=== PATIENT | male | born 1965 | race Caucasian/White ===

== ENCOUNTER → 2017-08-04 | Outpatient (CLI) | payer BC ==
--- NOTE | 2017-08-04 09:31 | US ---
EXAMINATION TYPE: US abdomen limited DATE OF EXAM: 08/04/2017 COMPARISON: NONE CLINICAL HISTORY: 51-year-old male R10.11 RUQ pain. Epigastric pain. TECHNIQUE: Multiple sonographic images of the right upper quadrant are obtained. FINDINGS: Liver Length: 15.2 cm Gallbladder Wall: 0.3 cm CBD: 0.3 cm Right Kidney: 11.1 x 4.5 x 5.4 cm Pancreas: Obscured by bowel gas Liver: Homogeneous echotexture without focal lesion. Gallbladder: No evidence of stones. Gallbladder wall thickness at the upper limits of normal. No abn ormal distention or pericholecystic fluid. Evidence for sonographic Lambert's sign: no CBD: wnl Right Kidney: no evidence of hydronephrosis. IMPRESSION: Gallbladder wall thickness is at the upper limits of normal. No evidence for cholelithiasis or ancill florence findings of acute cholecystitis.
--- NOTE | 2017-08-04 11:36 | NM ---
EXAMINATION TYPE: NM hepatobiliary w EF DATE OF EXAM: 08/04/2017 COMPARISON: Ultrasound 08/04/2017 HISTORY: 51 year-old male right upper quadrant pain TECHNIQUE: After the intravenous administration of 5.2 mCi Tc 99m Mebrofenin hepatobiliary scintigrap hy is performed. Immediate images post injection. FINDINGS: There is satisfactory initial accumulation of tracer by the liver. The gallbladder is visualized wit hin 6 minutes. The small bowel activity is noted within 24 minutes. At one hour 8 ounces of oral en sure plus is given to mimic CCK and gallbladder ejection fraction is calculated at 62 %, in the carmita l range. Therefore there is no scintigraphic evidence of cystic or common bile duct obstruction to s uggest an acute/chronic cholecystitis or gallbladder dyskinesia. IMPRESSION: Exam is within normal limits.
== END | disposition home or self-care (01) ==
LOC: RADUSMAIN 08:39
PROVIDERS: ATTEND Family Medicine
DX: R10.11 Right upper quadrant pain (principal)
CPT/HCPCS: 76705; 78226; A9537

== ENCOUNTER → 2018-03-13 | Outpatient (CLI) | payer BC ==
--- NOTE | 2018-03-13 10:33 | CT ---
EXAMINATION TYPE: CT brain wo/w con DATE OF EXAM: 03/13/2018 COMPARISON: NONE HISTORY: Headache CT DLP: 2267 mGycm Automated exposure control for dose reduction was used. CONTRAST: CT scan of the head is performed without and with IV Contrast, patient injected with 100 ml mL of Iso roberto 300. FINDINGS: There is no abnormal enhancing mass or midline shift identified. Area of low attenuation within the r ight thalamus may represent an intraparenchymal cyst or remote lacunar infarction. No enhancing mass. Calvarium intact. Ventricular system compatible with patient's age. Congenital cavum septum deformity noted. IMPRESSION: Congenital cavum septum deformity identified. Small arachnoid cyst not excluded. Recommend MRI.
== END | disposition home or self-care (01) ==
LOC: RADCTMAIN 08:34
PROVIDERS: ATTEND Family Medicine
DX: Q04.9 Congenital malformation of brain, unspecified (principal)
CPT/HCPCS: 70470; Q9967

== ENCOUNTER → 2018-04-05 | Outpatient (CLI) | payer BC ==
--- NOTE | 2018-04-05 13:35 | MR ---
EXAMINATION TYPE: MR brain wo con DATE OF EXAM: 04/05/2018 12:58 PM COMPARISON: CT brain dated March 13, 2018 HISTORY: Acquired deformity of nose/ Arachnoid Cyst/ Follow up from prior CT of Brain Multiplanar and multispin-echo imaging of the brain was performed . The ventricles, basal cisterns and sulci overlying the cerebral convexities are within normal limits. There is no evidence for midline shift or mass effect. Acute intracranial hemorrhage is not evident. CSF collection within the pineal cistern measuring 2.8 x 1.6 cm reflect an arachnoid cyst and less likely pineal gland cyst. The brain parenchyma reveals no abnormal increased signal. No acute edema is identified. The paranasal sinuses and mastoid air cells are well-aerated. IMPRESSION: CSF collection within the pineal cistern measuring 2.8 x 1.6 cm reflect an arachnoid cyst and less li antonio pineal gland cyst.
== END | disposition home or self-care (01) ==
LOC: RADMRIMAIN 12:17
PROVIDERS: ATTEND Family Medicine
DX: G93.0 Cerebral cysts (principal)
CPT/HCPCS: 70551

== ENCOUNTER → 2020-06-29 | Outpatient (CLI) | payer BC | END | disposition home or self-care (01) | LOC: LABWHC1 14:20 | PROVIDERS: ATTEND Emergency Medicine | DX: Z20.828 Contact with and (suspected) exposure to other viral communicable diseases (principal) | CPT/HCPCS: U0003; C9803 ==

== ENCOUNTER 2021-04-08 15:07 | Observation (INO) | payer BC ==
[2021-04-08] MEDS ORDERED: SODIUM CHLORIDE 0.9% 500 ML 500 ML IV STA (15:28)
--- NOTE | 2021-04-08 15:32 | ED ---
General Adult HPI - General Chief complaint: Arrhythmia/Palpitations Stated complaint: Cardiac issues Time Seen by Provider: 04/08/21 15:10 Source: patient, family, RN notes reviewed, old records reviewed Mode of arrival: wheelchair Limitations: no limitations - History of Present Illness Initial comments: This is a 55-year-old male who presents emergency department with past medical history significant for diet-controlled diabetes and hypertension. Patient states he sits take his lisinopril today. Patient states starting on Monday he started having palpitations that would last anywhere from 20-30 minutes every time he had them he felt lightheaded mildly short of breath and thought he might pass out. Patient states today's episode made him feel significantly short of breath and again he thought he was going to pass out. Patient states she's had tendon such events since Monday. Patient denies any chest pain. Patient denies any recent fever chills or cough. Patient denies any diaphoretic episodes. Patient is having nausea. Patient denies abdominal pain patient denies nausea vomiting diarrhea. Patient denies ever having been worked up for this in the past. Patient denies drug usage states she does smoke marijuana however. Nicki ent states over the last few days had a couple of beers been no leg drinking episode. - Related Data Home Medications Medication Instructions Recorded Confirmed Aspirin EC [Ecotrin Low Dose] 81 mg PO DAILY@122904/08/21 04/08/21 Cholecalciferol [Vitamin D3 (25 25 mcg PO DAILY@9904/08/21 04/08/21 Mcg = 1000 Iu)] Cyanocobalamin (Vitamin B-12) 1,000 mcg PO DAILY@122904/08/21 04/08/21 [Vitamin B-12] Krill Oil 500 mg PO DAILY@122904/08/21 04/08/21 Loratadine 10 mg PO DAILY@122904/08/21 04/08/21 Multivitamins, Thera [Multivitamin 1 tab PO DAILY@122904/08/21 04/08/21 (formulary)] Niacin 500 mg PO DAILY@122904/08/21 04/08/21 Omeprazole 20 mg PO DAILY@122904/08/21 04/08/21 Tamsulosin HCl [Flomax] 0.4 mg PO DAILY@122904/08/21 04/08/21 Turmeric Root Extract [Turmeric] 500 mg PO DAILY@1230 04/08/21 04/08/21 Zinc 50 mg PO DAILY@1230 04/08/21 04/08/21 lisinopriL 10 mg PO BID@1230,0100 04/08/21 04/08/21 Allergies Allergy/AdvReac Type Severity Reaction Status Date / Time cephalexin [From Keflex] AdvReac Nausea & Verified 04/08/21 16:00 Vomiting & Diarrhea codeine AdvReac Nausea & Verified 04/08/21 16:00 Vomiting Review of Systems ROS Statement: Those systems with pertinent positive or pertinent negative responses have been documented in the HPI. ROS Other: All systems not noted in ROS Statement are negative. Past Medical History Past Medical History: Hyperlipidemia, Hypertension History of Any Multi-Drug Resistant Organisms: None Reported Past Surgical History: Appendectomy Past Psychological History: No Psychological Hx Reported Smoking Status: Never smoker Past Alcohol Use History: Occasional Past Drug Use History: Marijuana General Exam - General Exam Comments Initial Comments: GENERAL: Patient is well-developed and well-nourished. Patient is nontoxic and well- hydrated and is in mild distress. ENT: Neck is soft and supple. No significant lymphadenopathy is noted. Oropharynx is clear. Moist mucous membranes. Neck has full range of motion without eliciting any pain. EYES: The sclera were anicteric and conjunctiva were pink and moist. Extraocular movements were intact and pupils were equal round and reactive to light. Eyelids were unremarkable. PULMONARY: Unlabored respirations. Good breath sounds bilaterally. No audible rales rhonchi or wheezing was noted. CARDIOVASCULAR: There is a regular rate and rhythm without any murmurs gallops or rubs. ABDOMEN: Soft and nontender with normal bowel sounds. SKIN: Skin is clear with no lesions or rashes and otherwise unremarkable. NEUROLOGIC: Patient is alert and oriented x3. Cranial nerves II through XII are grossly intact. Motor and sensory are also intact. Normal speech, volume and content. Symmetrical smile. MUSCULOSKELETAL: Normal extremities with adequate strength and full range of motion. LYMPHATICS: No significant lymphadenopathy is noted PSYCHIATRIC: Normal psychiatric evaluation. 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 Spoke with Dr. Torres she agreed to admit the patient admitted the patient wrote admitting orders. Patient did not have any episodes while on a monitor in the emergency [facility] t. - Lab Data Result diagrams: 04/08/21 15:28 04/08/21 15:28 Lab Results 04/08/21 04/08/21 04/08/21 Range/Units 15:28 15:28 15:28 WBC 6.6 (3.8-10.6) k/uL RBC 4.82 (4.30-5.90) m/uL Hgb 15.3 (13.0-17.5) gm/dL Hct 43.8 (39.0-53.0) % MCV 90.8 (80.0-100.0) fL MCH 31.7 (25.0-35.0) pg MCHC 34.9 (31.0-37.0) g/dL RDW 12.3 (11.5-15.5) % Plt Count 318 (150-450) k/uL MPV 7.1 Neutrophils % 53 % Lymphocytes % 37 % Monocytes % 6 % Eosinophils % 2 % Basophils % 1 % Neutrophils # 3.5 (1.3-7.7) k/uL Lymphocytes # 2.5 (1.0-4.8) k/uL Monocytes # 0.4 (0-1.0) k/uL Eosinophils # 0.1 (0-0.7) k/uL Basophils # 0.0 (0-0.2) k/uL PT 10.2 (9.0-12.0) sec INR 0.9 (<1.2) APTT 23.7 (22.0-30.0) sec Sodium 138 (137-145) mmol/L Potassium 4.4 (3.5-5.1) mmol/L Chloride 105 (98-107) mmol/L Carbon Dioxide 25 (22-30) mmol/L Anion Gap 8 mmol/L BUN 19 (9-20) mg/dL Creatinine 0.90 (0.66-1.25) mg/dL Est GFR (CKD-EPI)AfAm >90 (>60 ml/min/1.73 sqM) Est GFR (CKD-EPI)NonAf >90 (>60 ml/min/1.73 sqM) Glucose 81 (74-99) mg/dL Calcium 9.6 (8.4-10.2) mg/dL Magnesium 1.8 (1.6-2.3) mg/dL Total Bilirubin 0.4 (0.2-1.3) mg/dL AST 37 (17-59) U/L ALT 25 (4-49) U/L Alkaline Phosphatase 54 (38-126) U/L Troponin I (0.000-0.034) ng/mL Total Protein 6.8 (6.3-8.2) g/dL Albumin 4.3 (3.5-5.0) g/dL TSH 0.887 (0.465-4.680) mIU/L 04/08/21 Range/Units 15:28 WBC (3.8-10.6) k/uL RBC (4.30-5.90) m/uL Hgb (13.0-17.5) gm/dL Hct (39.0-53.0) % MCV (80.0-100.0) fL MCH (25.0-35.0) pg MCHC (31.0-37.0) g/dL RDW (11.5-15.5) % Plt Count (150-450) k/uL MPV Neutrophils % % Lymphocytes % % Monocytes % % Eosinophils % % Basophils % % Neutrophils # (1.3-7.7) k/uL Lymphocytes # (1.0-4.8) k/uL Monocytes # (0-1.0) k/uL Eosinophils # (0-0.7) k/uL Basophils # (0-0.2) k/uL PT (9.0-12.0) sec INR (<1.2) APTT (22.0-30.0) sec Sodium (137-145) mmol/L Potassium (3.5-5.1) mmol/L Chloride (98-107) mmol/L Carbon Dioxide (22-30) mmol/L Anion Gap mmol/L BUN (9-20) mg/dL Creatinine (0.66-1.25) mg/dL Est GFR (CKD-EPI)AfAm (>60 ml/min/1.73 sqM) Est GFR (CKD-EPI)NonAf (>60 ml/min/1.73 sqM) Glucose (74-99) mg/dL Calcium (8.4-10.2) mg/dL Magnesium (1.6-2.3) mg/dL Total Bilirubin (0.2-1.3) mg/dL AST (17-59) U/L ALT (4-49) U/L Alkaline Phosphatase (38-126) U/L Troponin I <0.012 (0.000-0.034) ng/mL Total Protein (6.3-8.2) g/dL Albumin (3.5-5.0) g/dL TSH (0.465-4.680) mIU/L Disposition Clinical Impression: Palpitations, Near syncope Disposition: ADMITTED IP TO THIS HOSP Referrals: Leonardo Thapa DO [Primary Care Provider] - 1-2 days Time of Disposition: 17:03
[2021-04-08 16:05] LABS: Basophils % (A) 1 %; Eosinophils # (A) 0.1 k/uL (0-0.7); Eosinophils % (A) 2 %; HCT 43.8 % (39.0-53.0); HGB 15.3 gm/dL (13.0-17.5); Lymphocytes # (A) 2.5 k/uL (1.0-4.8); Lymphocytes % (A) 37 %; MCH 31.7 pg (25.0-35.0); MCHC 34.9 g/dL (31.0-37.0); MCV 90.8 fL (80.0-100.0); Mean Platelet Volume 7.1; Monocytes # (A) 0.4 k/uL (0-1.0); Monocytes % (A) 6 %; Neutrophils # (A) 3.5 k/uL (1.3-7.7); Neutrophils % (A) 53 %; Platelet Count 318 k/uL (150-450); RBC 4.82 m/uL (4.30-5.90); RDW 12.3 % (11.5-15.5); WBC 6.6 k/uL (3.8-10.6)
[2021-04-08 16:12] LABS: INR 0.9 (<1.2); Partial Thromboplastin Time 23.7 sec (22.0-30.0); Prothrombin Time 10.2 sec (9.0-12.0)
--- NOTE | 2021-04-08 16:16 | XR ---
EXAMINATION TYPE: XR chest 2V DATE OF EXAM: 04/08/2021 COMPARISON: None INDICATION: Dysrhythmia TECHNIQUE: Frontal and lateral views of the chest are obtained. FINDINGS: The heart size is normal. The pulmonary vasculature is normal. The lungs are clear. IMPRESSION: 1. No acute pulmonary process.
[2021-04-08 16:19] LABS: ALT 25 U/L (4-49); AST 37 U/L (17-59); African American GFR (CKD) >90 (>60 ml/min/1.73 sqM); Albumin 4.3 g/dL (3.5-5.0); Alkaline Phosphatase 54 U/L (38-126); Anion Gap 8 mmol/L; Blood Urea Nitrogen 19 mg/dL (9-20); Calcium 9.6 mg/dL (8.4-10.2); Carbon Dioxide 25 mmol/L (22-30); Chloride 105 mmol/L (98-107); Glucose 81 mg/dL (74-99); Magnesium 1.8 mg/dL (1.6-2.3); Non-African American GFR(CKD) >90 (>60 ml/min/1.73 sqM); Potassium 4.4 mmol/L (3.5-5.1); Sodium 138 mmol/L (137-145); Total Bilirubin 0.4 mg/dL (0.2-1.3); Total Protein 6.8 g/dL (6.3-8.2)
[2021-04-08] MEDS ORDERED: NITROGLYCERIN SL TABS 0.4 MG TAB SUBLINGUAL PRN (17:05)
[2021-04-08 17:17] LABS: Amphetamine Screen,Urine Not Detected (NotDetected); Barbiturate Screen,Urine Not Detected (NotDetected); Benzodiazepines Screen,Urine Not Detected (NotDetected); Cocaine Screen,Urine Not Detected (NotDetected); Methadone Screen, Urine Not Detected (NotDetected); Opiate Screen,Urine Not Detected (NotDetected); Oxycodone Screen, Urine Not Detected (NotDetected); Phencyclidine Screen,Urine Not Detected (NotDetected); Tricyclic Antidepressant,Urine Not Detected (NotDetected); Urn Cannabinoid Scrn Detected (NotDetected)
[2021-04-08 20:32] VITALS: RESP 18
[2021-04-08] MEDS: PANTOPRAZOLE 40 MG TABLET PO SCH (23:43)
[2021-04-08] MEDS: lisinopriL 10 MG TAB PO SCH (23:44)
[2021-04-09] MEDS ORDERED: CHOLECALCIFEROL 25 MCG (1000 IU) TABLET PO SCH (01:00)
[2021-04-09 07:40] LABS: Glucose,Whole Blood 91 mg/dL (75-99)
[2021-04-09 07:57] VITALS: PULSE 56
[2021-04-09 08:03] VITALS: BP 128/75; TEMP 98.1
[2021-04-09] MEDS: PANTOPRAZOLE 40 MG TABLET PO SCH (08:16)
--- NOTE | 2021-04-09 08:40 | P.CRDCN ---
History of Present Illness Consult date: 04/09/21 History of present illness: HISTORY OF PRESENT ILLNESS: This is a 55-year-old male with a past medical history significant for hypertension, hyperlipidemia, and occasional marijuana use. 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 We have been asked to see the patient in consultation for palpitations. Patient examined at the bedside. Patient states he has been having palpitations since Monday. He states he would start feeling his heart fluttering while he was at work. He states he would sit down and relax and requiring some water and eventually it would subside on its own. However he states yesterday while at work he had palpitations that persisted for a long time. He also reports feeling dizziness and short of breath. At the ti me of my examination, the patient denies feeling palpitations. He denies dizziness. Denies shortness of breath. Denies chest pain or pressure. Patient does report that he took his pulse yesterday on a blood pressure machine that he has at home and it was reading 150. Patient reports a family history of coronary artery disease in both his mother and his father. EKG reveals sinus bradycardia with early repolarization Chest xray negative for acute process Laboratory data: WBC 6.6. Hemoglobin 15.9. Platelet count 318. Sodium 138. Potassium 4.4. BUN 19. Creatinine 0.90. Troponin negative 3. TSH 0.887. Current home cardiac medications include lisinopril 10 mg twice a day, niacin 500 mg daily, and aspirin 81 mg daily REVIEW OF SYSTEMS: At the time of my exam: CONSTITUTIONAL: Denies fever or chills. HEENT: Denies blurred vision, vision changes, or eye pain. Denies hemoptysis CARDIOVASCULAR: Denies chest pain. Denies orthopnea. Denies PND. Denies palpitations RESPIRATORY: Denies shortness of breath. GASTROINTESTINAL: Denies abdominal pain. Denies nausea or vomiting. HEMATOLOGIC: Denies bleeding disorders. GENITOURINARY: Denies any blood in urine. SKIN: Denies pruitis. Denies rash. PHYSICAL EXAM: VITAL SIGNS: Reviewed. GENERAL: Well-developed in no acute distress. HEENT: Head is normocephalic. Pupils are equal, round. Sclerae anicteric. Mucous membranes of the mouth are moist. Neck supple. No JVD or thyromegaly LUNGS: Respirations even and unlabored. Lungs essentially clear to auscultation bilaterally. HEART: Regular rate and rhythm. S1 and S2 heard. ABDOMEN: Soft. Nondistended. Nontender. EXTREMITIES: Normal range of motion. No clubbing or cyanosis. Peripheral pulses intact. No lower extremity edema NEUROLOGIC: Awake and alert. Oriented x 3. ASSESSMENT: Palpitations Dizziness Hypertension Hyperlipidemia Occasional marijuana use Family history of coronary artery disease PLAN: No arrhythmias have been noted on telemetry thus far. Continue telemetry monitoring TSH checked and within normal limits Obtain 2-D echo to assess cardiac structure and function Resume home cardiac medications Patient may be discharged home today with an event monitor and follow up on an outpatient basis Nurse practitioner note has been reviewed by physician. Signing provider agrees with the documented findings, assessment, and plan of care. Past Medical History Past Medical History: Hyperlipidemia, Hypertension History of Any Multi-Drug Resistant Organisms: None Reported Past Surgical History: Appendectomy Past Anesthesia/Blood Transfusion Reactions: No Reported Reaction Past Psychological History: No Psychological Hx Reported Smoking Status: Never smoker Past Alcohol Use History: Occasional Past Drug Use History: Marijuana Medications and Allergies Home Medications Medication Instructions Recorded Confirmed Type Aspirin EC [Ecotrin Low Dose] 81 mg PO DAILY@122904/08/21 04/08/21 History Cholecalciferol [Vitamin D3 (25 25 mcg PO DAILY@9904/08/21 04/08/21 History Mcg = 1000 Iu)] Cyanocobalamin (Vitamin B-12) 1,000 mcg PO DAILY@122904/08/21 04/08/21 History [Vitamin B-12] Krill Oil 500 mg PO DAILY@122904/08/21 04/08/21 History Loratadine 10 mg PO DAILY@122904/08/21 04/08/21 History Multivitamins, Thera [Multivitamin 1 tab PO DAILY@122904/08/21 04/08/21 History (formulary)] Niacin 500 mg PO DAILY@122904/08/21 04/08/21 History Omeprazole 20 mg PO DAILY@122904/08/21 04/08/21 History Tamsulosin HCl [Flomax] 0.4 mg PO DAILY@122904/08/21 04/08/21 History Turmeric Root Extract [Turmeric] 500 mg PO DAILY@122904/08/21 04/08/21 History Zinc 50 mg PO DAILY@1230 04/08/21 04/08/21 History lisinopriL 10 mg PO BID@1230,0100 04/08/21 04/08/21 History Allergies Allergy/AdvReac Type Severity Reaction Status Date / Time cephalexin [From Keflex] AdvReac Nausea & Verified 04/08/21 16:00 Vomiting & Diarrhea codeine AdvReac Nausea & Verified 04/08/21 16:00 Vomiting Physical Exam Vitals: Vital Signs Temp Pulse Pulse Pulse Resp BP BP 04/09/21 07:55 56 L 51 L 18 04/09/21 02:00 98.4 F 51 L 18 125/77 04/08/21 20:31 97.8 F 56 L 18 130/73 04/08/21 20:00 18 04/08/21 16:55 56 L 04/08/21 16:52 61 16 123/73 04/08/21 15:10 98.1 F 69 17 138/90 Pulse Ox 04/09/21 07:55 04/09/21 02:00 99 04/08/21 20:31 99 04/08/21 20:00 04/08/21 16:55 04/08/21 16:52 98 04/08/21 15:10 98 Intake and Output 04/08/21 04/09/21 04/09/21 22:59 06:59 14:59 Other: Voiding Method Toilet Toilet Toilet # Voids 1 2 Weight 80.286 kg Results 04/08/21 15:28 04/08/21 15:28 Cardiac Enzymes 04/08/21 04/08/21 04/08/21 Range/Units 15:28 15:28 20:57 AST 37 (17-59) U/L Troponin I <0.012 <0.012 (0.000-0.034) ng/mL 04/08/21 Range/Units 23:50 AST (17-59) U/L Troponin I <0.012 (0.000-0.034) ng/mL Coagulation 04/08/21 Range/Units 15:28 PT 10.2 (9.0-12.0) sec APTT 23.7 (22.0-30.0) sec CBC 04/08/21 Range/Units 15:28 WBC 6.6 (3.8-10.6) k/uL RBC 4.82 (4.30-5.90) m/uL Hgb 15.3 (13.0-17.5) gm/dL Hct 43.8 (39.0-53.0) % Plt Count 318 (150-450) k/uL Comprehensive Metabolic Panel 04/08/21 Range/Units 15:28 Sodium 138 (137-145) mmol/L Potassium 4.4 (3.5-5.1) mmol/L Chloride 105 (98-107) mmol/L Carbon Dioxide 25 (22-30) mmol/L BUN 19 (9-20) mg/dL Creatinine 0.90 (0.66-1.25) mg/dL Glucose 81 (74-99) mg/dL Calcium 9.6 (8.4-10.2) mg/dL AST 37 (17-59) U/L ALT 25 (4-49) U/L Alkaline Phosphatase 54 (38-126) U/L Total Protein 6.8 (6.3-8.2) g/dL Albumin 4.3 (3.5-5.0) g/dL Current Medications Generic Name Dose Route Start Last Admin Trade Name Freq PRN Reason Stop Dose Admin Aspirin 325 mg 04/09/21 09:00 Aspirin 325 Mg Tab PO DAILY [facility] Cholecalciferol 25 mcg 04/09/21 01:00 04/08/21 23:44 Cholecalciferol 25 Mcg (1000 Iu) Tablet PO 25 mcg DAILY@0100 [facility] Administration Lisinopril 10 mg 04/09/21 01:00 04/08/21 23:44 Lisinopril 10 Mg Tab PO 10 mg BID@1230,0100 [facility] Administration Multivitamins 1 each 04/09/21 12:30 Multivitamins, Thera 1 Each Tab PO DAILY@1230 [facility] Nitroglycerin 0.4 mg 04/08/21 17:05 Nitroglycerin Sl Tabs 0.4 Mg Tab SUBLINGUAL Q5M PRN Chest Pain Pantoprazole Sodium 40 mg 04/08/21 23:45 04/08/21 23:43 Pantoprazole 40 Mg Tablet PO 40 mg AC-BID DNAA Administration Tamsulosin HCl 0.4 mg 04/09/21 12:30 Tamsulosin 0.4 Mg Cap.Er.24h PO DAILY@1230 DANA Intake and Output 04/08/21 04/09/21 04/09/21 22:59 06:59 14:59 Other: Voiding Method Toilet Toilet Toilet # Voids 1 2 Weight 80.286 kg 04/08/21 15:28 04/08/21 15:28
[2021-04-09] MEDS ORDERED: ASPIRIN 325 MG TAB PO SCH (09:00)
--- NOTE | 2021-04-09 11:56 | P.HPIM ---
History of Present Illness H&P Date: 04/09/21 HISTORY AND PHYSICAL AND DISCHARGE SUMMARY: HISTORY OF PRESENT ILLNESS This is a 55-year-old male patient of Dr. Thapa with past medical history of diabetes mellitus type 2 diet-controlled, hypertension, seasonal ALLERGIES, gastroesophageal reflux disease, benign prostatic hypertrophy. Patient states that he checked his blood pressure yesterday on the machine and his heart rate was 150 as blood pressure was 112/84. He states he has episodes of palpitations are lasting for about a half hour his last episode was yesterday around 1:30 or 2 PM. He states he drinks 2 cups of coffee daily in the morning. He states he is passing gas and burping quite a bit. He had an episode on Monday of palpitations while at work and then Monday he also had episodes SOAP which seemed to be a little bit worse. On Monday he was helping his son move to a new house and he also had an episode on that day. He denies any history of obstructive sleep apnea and no cardiac history. He denies any alcohol use, no decongestant use. He denies any recent weight loss. He states he did have a stress test many years ago which apparently was normal at that time. Patient presented to the [facility] emergency center. He was found to be afebrile, heart rate in the 60s, blood pressure 138/90, pulse ox 90% on room air. EKG was sinus rhythm at 64 bpm with no acute ST changes. CBC and BMP were unremarkable. Chest x-ray shows no acute abnormality. Liver function tests were normal. TSH 0.887. Troponin negative on 3 draws. Urine drug screen was positive for marijuana. Blood sugar was 81. Patient placed on the observation unit and consult requested with cardiology. Patient has had no arrhythmias on telemetry. Echocardiogram reveals Patient has been cleared for discharge by cardiology once event monitor has been placed with plan for outpatient follow-up. Patient will be discharged home today in stable condition. REVIEW OF SYSTEMS Constitutional: No fever, no chills, no night sweats. No weight change. No weakness, fatigue or lethargy. No daytime sleepiness. EENT: No headache. No blurred vision or double vision, no loss of vision. No loss of Hearing. No nasal drainage or congestion. No epistaxis. No sore throat. Lungs: No shortness of breath, cough, no sputum production. No wheezing. Cardiovascular: No chest pain, no lower extremity edema. Reports palpitations. No paroxysmal nocturnal dyspnea. No orthopnea. Reports lightheadedness or dizziness. Reports near syncopal episodes. Abdominal: No abdominal pain. Reports nausea, no vomiting. No diarrhea. No constipation. No bloody or tarry stools.. No loss of appetite. Genitourinary: No dysuria, increased frequency, urgency. No urinary retention. Musculoskeletal: No myalgias. No muscle weakness, no gait dysfunction, no frequent falls. No back pain. No neck pain. Integumentary: No wounds, no lesions. No rash or pruritus. No unusual bruising. No change in hair or nails. Neurologic: No aphasia. No facial droop. No change in mentation. No head injury. No headache. No paralysis. No paresthesia. Psychiatric: No depression. No anxiety. No mood swings. Endocrine: No abnormal blood sugars. No weight change. No excessive sweating or thirst. No cold intolerance. SOCIAL HISTORY Patient denies tobacco use. He smokes marijuana occasionally. He states he drinks beer occasionally but had 3 beers on Monday night. No other drug use. Patient lives at home with his . FAMILY HISTORY Father from melanoma with metastatic disease to the brain with history of coronary artery disease. Mother is with history of coronary artery disease and stroke. Patient has 2 brothers one has history of hypertension, hyperlipidemia and possible coronary artery disease. One brother has history of kidney cancer. Patient has 1 sister with no major medical problems. He does not have any children. PHYSICAL EXAMINATION Gen: This is a 55-year-old male. He is resting in bed and appears to be comfortable and in no acute distress. HEENT: Head is atraumatic, normocephalic. Pupils equal, round. Sclerae is anicteric. NECK: Supple. No JVD. No lymphadenopathy. No thyromegaly. LUNGS: Clear to auscultation. No wheezes or rhonchi. No intercostal retractions. HEART: Regular rate and rhythm. No murmur. ABDOMEN: Soft. Bowel sounds are present. No masses. No tenderness. EXTREMITIES: No pedal edema. No calf tenderness. NEUROLOGICAL: Patient is awake, alert and oriented x3. Cranial nerves 2 through 12 are grossly intact. ASSESSMENT AND PLAN 1. Symptoms of palpitations, lightheadedness, shortness of breath and near syncope. Cardiology consult appreciated. Event monitor for outpatient testing. 2. Diabetes mellitus type 2, diet controlled. 3. Hypertension. Continue lisinopril 10 mg twice daily. 4. Seasonal ALLERGIES. Continue loratadine. 5. Gastroesophageal reflux disease. Continue omeprazole 20 mg daily. 6. Benign prostatic hypertrophy. Continue Flomax or 0.4 mg daily. Patient placed as an observation status. DISCHARGE PLAN Home. DISCHARGE MEDICATION LIST - NO CHANGES MADE Aspirin EC [Ecotrin Low Dose] 81 mg PO DAILY@122904/08/21 [History] Cholecalciferol [Vitamin D3 (25 Mcg = 1000 Iu)] 25 mcg PO DAILY@9904/08/21 [History] Cyanocobalamin (Vitamin B-12) [Vitamin B-12] 1,000 mcg PO DAILY@122904/08/21 [History] Krill Oil 500 mg PO DAILY@122904/08/21 [History] Loratadine 10 mg PO DAILY@122904/08/21 [History] Multivitamins, Thera [Multivitamin (formulary)] 1 tab PO DAILY@122904/08/21 [History] Niacin 500 mg PO DAILY@122904/08/21 [History] Omeprazole 20 mg PO DAILY@122904/08/21 [History] Tamsulosin HCl [Flomax] 0.4 mg PO DAILY@122904/08/21 [History] Turmeric Root Extract [Turmeric] 500 mg PO DAILY@122904/08/21 [History] Zinc 50 mg PO DAILY@122904/08/21 [History] lisinopriL 10 mg PO BID@1229,9904/08/21 [History] Impression and plan of care have been directed as dictated by the signing physician. Makayla Trotter nurse practitioner acting as scribe for signing physician. Past Medical History Past Medical History: Hyperlipidemia, Hypertension History of Any Multi-Drug Resistant Organisms: None Reported Past Surgical History: Appendectomy Past Anesthesia/Blood Transfusion Reactions: No Reported Reaction Past Psychological History: No Psychological Hx Reported Smoking Status: Never smoker Past Alcohol Use History: Occasional Past Drug Use History: Marijuana Medications and Allergies Home Medications Medication Instructions Recorded Confirmed Type Aspirin EC [Ecotrin Low Dose] 81 mg PO DAILY@1230 04/08/21 04/08/21 History Cholecalciferol [Vitamin D3 (25 25 mcg PO DAILY@0100 04/08/21 04/08/21 History Mcg = 1000 Iu)] Cyanocobalamin (Vitamin B-12) 1,000 mcg PO DAILY@1230 04/08/21 04/08/21 History [Vitamin B-12] Krill Oil 500 mg PO DAILY@1230 04/08/21 04/08/21 History Loratadine 10 mg PO DAILY@12304/08/21 04/08/21 History Multivitamins, Thera [Multivitamin 1 tab PO DAILY@0 04/08/21 04/08/21 History (formulary)] Niacin 500 mg PO DAILY@122904/08/21 04/08/21 History Omeprazole 20 mg PO DAILY@122904/08/21 04/08/21 History Tamsulosin HCl [Flomax] 0.4 mg PO DAILY@0 04/08/21 04/08/21 History Turmeric Root Extract [Turmeric] 500 mg PO DAILY@122904/08/21 04/08/21 History Zinc 50 mg PO DAILY@0 04/08/21 04/08/21 History lisinopriL 10 mg PO BID@1230,0100 04/08/21 04/08/21 History Allergies Allergy/AdvReac Type Severity Reaction Status Date / Time cephalexin [From Keflex] AdvReac Nausea & Verified 04/08/21 16:00 Vomiting & Diarrhea codeine AdvReac Nausea & Verified 04/08/21 16:00 Vomiting Physical Exam Vitals: Vital Signs Temp Pulse Pulse Pulse Resp BP BP 04/09/21 07:55 56 L 51 L 18 04/09/21 07:00 98.1 F 50 L 18 128/75 04/09/21 02:00 98.4 F 51 L 18 125/77 04/08/21 20:31 97.8 F 56 L 18 130/73 04/08/21 20:00 18 04/08/21 16:55 56 L 04/08/21 16:52 61 16 123/73 04/08/21 15:10 98.1 F 69 17 138/90 Pulse Ox 04/09/21 07:55 04/09/21 07:00 98 04/09/21 02:00 99 04/08/21 20:31 99 04/08/21 20:00 04/08/21 16:55 04/08/21 16:52 98 04/08/21 15:10 98 Intake and Output 04/08/21 04/09/21 04/09/21 22:59 06:59 14:59 Other: Voiding Method Toilet Toilet Toilet # Voids 1 2 Weight 80.286 kg Results CBC & Chem 7: 04/08/21 15:28 04/08/21 15:28 Labs: Abnormal Lab Results - Last 24 Hours (Table) 04/08/21 Range/Units 16:57 U Marijuana (THC) Screen Detected H (NotDetected) Thrombosis Risk Factor Assmnt - Choose All That Apply Any of the Below Risk Factors Present?: Yes Each Factor Represents 1 point: Age 41-60 years, Obesity (BMI >25) Other Risk Factors: No Other congenital or acquired thrombophilia - If yes, enter type in comment: No Thrombosis Risk Factor Assessment Total Risk Factor Score: 2 Thrombosis Risk Factor Assessment Level: Low Risk
--- NOTE | 2021-04-09 12:01 | ECHOF ---
Referral Reason:syncope MEASUREMENTS -------- HEIGHT: 170.2 cm WEIGHT: 80.3 kg BP: 125/77 RVIDd: 3.4 cm (< 3.3) IVSd: 0.9 cm (0.6 - 1.1) LVIDd: 4.7 cm (3.9 - 5.3) LVPWd: 1.2 cm (0.6 - 1.1) IVSs: 1.1 cm LVIDs: 2.9 cm LVPWs: 1.7 cm LAESV Index (A-L): 24.52 ml/m Ao Diam: 3.3 cm (2.0 - 3.7) AV Cusp: 2.3 cm (1.5 - 2.6) MV EXCURSION: 20.130 mm (> 18.000) MV EF SLOPE: 176 mm/s (70 - 150) EPSS: 0.9 cm MV E Saeed: 0.67 m/s MV DecT: 176 ms MV A Saeed: 0.35 m/s MV E/A Ratio: 1.92 RAP: 5.00 mmHg RVSP: 21.80 mmHg FINDINGS -------- Resting bradycardia (HR<60bpm). This was a technically adequate study. The left ventricular size is normal. Left ventricular wall thickness is normal. Overall left vent ricular systolic function is low-normal with, an EF between 50 - 55 %. The diastolic filling patter n is normal for the age of the patient 5.46. The right ventricle is mildly enlarged. Normal LA size by volume 22+/-6 ml/m2. The right atrial size is normal. Interatrial and interventricular septum intact. The aortic valve is trileaflet and appears structurally normal. There is no evidence of aortic sten osis. The maximum velocity across the aortic valve is {AV Vmax}. Mild mitral regurgitation is present. Mild tricuspid regurgitation present. There is no evidence of pulmonary hypertension. The right v entricular systolic pressure, as measured by Doppler, is 21.80mmHg. There is no pulmonic regurgitation present. The aortic root size is normal. Normal inferior vena cava with normal inspiratory collapse consistent with estimated right atrial pre ssure of 5 mmHg. There is no pericardial effusion. CONCLUSIONS -------- 1. The left ventricular size is normal. 2. Left ventricular wall thickness is normal. 3. Overall left ventricular systolic function is low-normal with, an EF between 50 - 55 %. 4. The right ventricle is mildly enlarged. 5. Mild mitral regurgitation is present. 6. Mild tricuspid regurgitation present. EVENT PLANNER: Denisse Thao RDCS
[2021-04-09] MEDS: lisinopriL 10 MG TAB PO SCH (12:20)
[2021-04-09] MEDS ORDERED: LORATADINE 10 MG TAB PO SCH (12:30)
[2021-04-09] MEDS ORDERED: MULTIVITAMINS, THERA 1 EACH TAB PO SCH (12:30)
[2021-04-09] MEDS ORDERED: NON FORMULARY DRUG (Omeprazole [Omeprazole] 20 MG Capsule.Dr) PO SCH (12:30)
[2021-04-09] MEDS ORDERED: TAMSULOSIN 0.4 MG CAP.ER.24H PO SCH (12:30)
[2021-04-09 13:29] LABS: Chol/HDL Ratio 4.76; LDL Cholesterol,Calculated 132.8 mg/dL (0.0-131.0); VLDL Calculation 55.2 mg/dL (5.00-40.00)
[2021-04-10] MEDS ORDERED: ASPIRIN 81 MG PO SCH (12:30)
== END 2021-04-09 13:05 | disposition home or self-care (01) ==
LOC: EC 15:07 → 6NMEDSUR 17:05
PROVIDERS: ADMIT Family Medicine; ATTEND Family Medicine
DX: R00.2 Palpitations (principal); R55 Syncope and collapse; I10 Essential (primary) hypertension; E78.5 Hyperlipidemia, unspecified; R42 Dizziness and giddiness; R06.02 Shortness of breath; R00.1 Bradycardia, unspecified; R11.0 Nausea; E11.9 Type 2 diabetes mellitus without complications; J30.2 Other seasonal allergic rhinitis; K21.9 Gastro-esophageal reflux disease without esophagitis; N40.0 Benign prostatic hyperplasia without lower urinary tract symptoms; E66.9 Obesity, unspecified; Z68.27 Body mass index [BMI] 27.0-27.9, adult; Z79.82 Long term (current) use of aspirin; Z79.899 Other long term (current) drug therapy; Z88.1 Allergy status to other antibiotic agents; Z88.5 Allergy status to narcotic agent; Z90.49 Acquired absence of other specified parts of digestive tract; Z82.49 Family history of ischemic heart disease and other diseases of the circulatory system; Z80.8 Family history of malignant neoplasm of other organs or systems; Z82.3 Family history of stroke; Z80.51 Family history of malignant neoplasm of kidney
CPT/HCPCS: 96361 ×3; 93005 ×2; 96360; 99285; 36415; 93306; 93270; 80061; 80053; 83735; 84443; 84484; 85025; 85610; 85730; 80306; 71046; G0378 ×2

== ENCOUNTER → 2021-04-21 | Outpatient (CLI) | payer BC ==
--- NOTE | 2021-04-21 14:34 | XR ---
EXAMINATION TYPE: XR forearm LT DATE OF EXAM: 04/21/2021 COMPARISON: None HISTORY: Pain TECHNIQUE: 2 view left forearm FINDINGS: No acute fracture or dislocation is evident. Joint spaces are preserved. Soft tissues are n ormal. IMPRESSION: 1. Normal 2 view left arm
--- NOTE | 2021-04-21 14:51 | XR ---
EXAMINATION TYPE: XR wrist complete LT DATE OF EXAM: 04/21/2021 COMPARISON: None HISTORY: Pain TECHNIQUE: 4 view left wrist FINDINGS: No acute fractures or dislocations are evident. Joint spaces are preserved. Soft tissues ar e normal. There is pain at the anatomic snuffbox, nuclear medicine bone scan would be recommended for additiona l evaluation. Follow-up studies can be performed 7-10 days from acute trauma for continued pain. IMPRESSION: 1. Normal 4 view left wrist
--- NOTE | 2021-04-21 15:09 | XR ---
EXAMINATION TYPE: XR hand complete LT DATE OF EXAM: 04/21/2021 COMPARISON: None HISTORY: Jammed finger, pain TECHNIQUE: 3 view left hand FINDINGS: No acute fractures are evident. Joint spaces are preserved. Soft tissues are normal. Follow up exams can be performed 7-10 days from acute trauma for continued pain. IMPRESSION: 1. Normal three-view left hand
== END | disposition home or self-care (01) ==
LOC: RADXRMAIN 13:56
PROVIDERS: ATTEND Family Medicine
DX: M79.632 Pain in left forearm (principal); M79.642 Pain in left hand; M25.532 Pain in left wrist

== ENCOUNTER 2022-09-29 14:21 | Observation (INO) | payer BC ==
[2022-09-29 15:09] LABS: Basophils % (A) 1 %; Eosinophils # (A) 0.1 k/uL (0-0.7); Eosinophils % (A) 1 %; HCT 45.6 % (39.0-53.0); HGB 15.4 gm/dL (13.0-17.5); Lymphocytes # (A) 2.3 k/uL (1.0-4.8); Lymphocytes % (A) 30 %; MCH 30.5 pg (25.0-35.0); MCHC 33.8 g/dL (31.0-37.0); MCV 90.2 fL (80.0-100.0); Mean Platelet Volume 6.6; Monocytes # (A) 0.3 k/uL (0-1.0); Monocytes % (A) 4 %; Neutrophils # (A) 4.9 k/uL (1.3-7.7); Neutrophils % (A) 64 %; Platelet Count 264 k/uL (150-450); RBC 5.05 m/uL (4.30-5.90); RDW 12.4 % (11.5-15.5); WBC 7.7 k/uL (3.8-10.6)
--- NOTE | 2022-09-29 15:32 | XR ---
EXAMINATION TYPE: XR chest 2V DATE OF EXAM: 09/29/2022 COMPARISON: 04/08/2021 INDICATION: Chest pain TECHNIQUE: Frontal and lateral views of the chest are obtained. FINDINGS: The heart size is normal. The pulmonary vasculature is normal. The lungs are clear. IMPRESSION: 1. No acute pulmonary process.
[2022-09-29 15:33] LABS: ALT 31 U/L (4-49); AST 34 U/L (17-59); African American GFR (CKD) >90 (>60 ml/min/1.73 sqM); Albumin 4.3 g/dL (3.5-5.0); Alkaline Phosphatase 53 U/L (38-126); Anion Gap 5 mmol/L; Blood Urea Nitrogen 14 mg/dL (9-20); Carbon Dioxide 33 mmol/L (22-30); Chloride 102 mmol/L (98-107); Glucose 103 mg/dL (74-99); Magnesium 1.7 mg/dL (1.6-2.3); Non-African American GFR(CKD) 89 (>60 ml/min/1.73 sqM); Sodium 140 mmol/L (137-145); Total Bilirubin 0.8 mg/dL (0.2-1.3); Total Protein 6.9 g/dL (6.3-8.2)
[2022-09-29 15:55] LABS: INR 1.3 (<1.2); Partial Thromboplastin Time 35.7 sec (22.0-30.0); Prothrombin Time 12.9 sec (9.0-12.0)
--- NOTE | 2022-09-29 15:55 | ED ---
General Adult HPI - General Chief complaint: Chest Pain Stated complaint: A fib Time Seen by Provider: 09/29/22 15:33 Source: patient, family Mode of arrival: ambulatory Limitations: no limitations - History of Present Illness Initial comments: Dictation was produced using [employer] dictation software. please excuse any grammatical, word or spelling errors. Chief Complaint: 56-year-old male past medical history of paroxysmal A. fib pre sents to the ER for worsening episodes a palpitations History of Present Illness: Is 56-year-old male he has past medical history paroxysmal A. fib. Patient has history of bouts of palpitations. States that he is prescribed flecainide to take when necessary palpitations. He scheduled to have a cardiac ablation in the near future with chemical compounder. Patient feels like his symptoms are getting worse prompting him to come to the emergency department. Significant other is at the bedside states that she is witnessed these episodes and that patient is very symptomatic causing him to be very lightheaded and borderline syncopal. Patient is asymptomatic at the bedside currently. States that he does have associated chest pain. States it's a pressure-like sensation its worsening palpations. The ROS documented in this emergency department record has been reviewed and confirmed by me. Those systems with pertinent positive or negative responses have been documented in the HPI. All other systems are other negative and/or noncontributory. PHYSICAL EXAM: General Impression: Alert and oriented x3, not in acute distress HEENT: Normocephalic atraumatic, extra-ocular movements intact, pupils equal and reactive to light bilaterally, mucous membranes moist. Cardiovascular: Heart regular rate and rhythm Chest: Able to complete full sentences, no retractions, no tachypnea Abdomen: abdomen soft, non-tender, non-distended, no organomegaly Musculoskeletal: Pulses present and equal in all extremities, no peripheral edema Motor: no focal deficits noted Neurological: CN II-XII grossly intact, no focal motor or sensory deficits noted Skin: Intact with no visualized rashes Psych: Normal affect and mood ED course: 56-year-old male presents emergency department with worsening palpi tations. Vital signs upon arrival are within acceptable limits. Nursing notes and chart review was performed EKG interpreted by me: Ventricular rate 58, sinus bradycardia,. 139, QRS 111, QTC 395. No RI prolongation, no QTC prolongation, no ST or T-wave changes noted. Overall, this EKG is unremarkable Laboratory evaluation obtained. CBC unremarkable. Coag panel within acceptable limits. Metabolic panel is unremarkable. Troponin is negative. Patient reevaluated at bedside at 4:15 PM states that he is having symptoms. He is having bigeminal rhythm on lunchroom monitor. Is also having symptoms. Considering patient's cardiac history be admitted with Cardec monitoring and c onsultation to electrophysiology. Admitted to [facility]. Pending discussion with a [facility] gas pumping station helper provider. Antiarrhythmics were considered however patient having sustained palpitations. CT was considered however patient clinical presentation consistent with pulmonary embolism. Was pt. sent in by a medical professional or institution (, [facility], BILLET HEATER OPERATOR, urgent care, hospital, or care home...) When possible be specific @ -No Did you speak to anyone other than the patient for history (EMS, parent, family, police, friend...)? What history was obtained from this source @ -Significant other at the bedside Did you review nursing and triage notes (agree or disagree)? Why? @ -I reviewed and agree with nursing and triage notes Were old charts reviewed (outside hosp., previous admission, EMS record, old EKG, old radiological studies, urgent care reports/EKG's, care home records)? Report findings @ -satellite project site monitor event was reviewed from 05/12/2021 and cardiology consultation are reviewed from 04/09/2021 Differential Diagnosis (chest pain, altered mental status, abdominal pain women, abdominal pain men, vaginal bleeding, weakness, fever, dyspnea, syncope, headache, dizziness, GI bleed, back pain, seizure, CVA, palpatations, mental health)? @ -Differential chest pain EKG interpreted by me (3pts min.). @ -As above X-rays interpreted by me (1pt min.). @ -As above CT interpreted by me (1pt min.). @ -None done U/S interpreted by me (1pt. min.). @ -None done What testing was considered but not performed or refused? (CT, X-rays, U/S, labs)? Why? @ -See above What meds were considered but not given or refused? Why? @ -See above Did you discuss the management of the patient with other professionals (professionals i.e. , [facility], BILLET HEATER OPERATOR, lab, RT, psych nurse, social insurance specialist, sheet metal installer, teacher, admissions officer, manager case)? Give summary @ -See above Was smoking cessation discussed for >3mins.? @ -No Was critical care preformed (if so, how long)? @ -No Were there social determinants of health that impacted care today? How? (Homelessness, low income, unemployed, alcoholism, drug addiction, transportation, low edu. Level, literacy, decrease access to med. care, correction, rehab)? @ -No Was there de-escalation of care discussed even if they declined (Discuss DNR or withdrawal of care, Hospice)? DNR status @ -No What co-morbidities impacted this encounter? (DM, HTN, Smoking, COPD, CAD, Cancer, CVA, ARF, Chemo, Hep., AIDS, mental health diagnosis, sleep apnea, morbid obesity)? @ -None Was patient admitted / discharged? Hospital course, mention meds given and route, prescriptions, significant lab abnormalities, going to OR and other pertinent info. @ -See above Undiagnosed new problem with uncertain prognosis? @ -No Drug Therapy requiring intensive monitoring for toxicity (Heparin, Nitro, Insulin, Cardizem)? @ -No Were any procedures done? @ -No Diagnosis/symptom? @ -Symptomatic palpitations Acute, or Chronic, or Acute on Chronic? @ -Acute on chronic Uncomplicated (without systemic symptoms) or Complicated (systemic symptoms)? @ -default Side effects of treatment? @ -No Exacerbation, Progression, or Severe Exacerbation? @ -Progression Poses a threat to life or bodily function? How? (Chest pain, [place], [place], pneumonia, PE, COPD, DKA, ARF, appy, cholecystitis, CVA, Diverticulitis, Homicidal, Suicidal, threat to staff... and all critical care pts) @ -Yes - Related Data Home Medications Medication Instructions Recorded Confirmed Aspirin EC [Ecotrin Low Dose] 81 mg PO DAILY@122904/08/21 04/08/21 Cholecalciferol [Vitamin D3 (25 25 mcg PO DAILY@9904/08/21 04/08/21 Mcg = 1000 Iu)] Cyanocobalamin (Vitamin B-12) 1,000 mcg PO DAILY@122904/08/21 04/08/21 [Vitamin B-12] Krill Oil 500 mg PO DAILY@122904/08/21 04/08/21 Loratadine 10 mg PO DAILY@1230 04/08/21 04/08/21 Multivitamins, Thera [Multivitamin 1 tab PO DAILY@1230 04/08/21 04/08/21 (formulary)] Niacin 500 mg PO DAILY@1230 04/08/21 04/08/21 Omeprazole 20 mg PO DAILY@1230 04/08/21 04/08/21 Tamsulosin HCl [Flomax] 0.4 mg PO DAILY@1230 04/08/21 04/08/21 Turmeric Root Extract [Turmeric] 500 mg PO DAILY@1230 04/08/21 04/08/21 Zinc 50 mg PO DAILY@1230 04/08/21 04/08/21 lisinopriL [Prinivil] 10 mg PO BID@1230,0100 04/08/21 04/08/21 Allergies Allergy/AdvReac Type Severity Reaction Status Date / Time cephalexin [From Keflex] AdvReac Nausea & Verified 04/08/21 16:00 Vomiting & Diarrhea codeine AdvReac Nausea & Verified 04/08/21 16:00 Vomiting Review of Systems ROS Statement: Those systems with pertinent positive or pertinent negative responses have been documented in the HPI. ROS Other: All systems not noted in ROS Statement are negative. Past Medical History Past Medical History: Hyperlipidemia, Hypertension History of Any Multi-Drug Resistant Organisms: None Reported Past Surgical History: Appendectomy Past Anesthesia/Blood Transfusion Reactions: No Reported Reaction Past Psychological History: No Psychological Hx Reported Smoking Status: Never smoker Past Alcohol Use History: Occasional Past Drug Use History: Marijuana General Exam Limitations: no limitations Course Vital Signs 09/29/22 14:31 Temperature 98 F Pulse Rate 67 Respiratory 20 Rate Blood Pressure 136/72 O2 Sat by Pulse 98 Oximetry Medical Decision Making - Lab Data Result diagrams: 09/29/22 14:46 09/29/22 14:46 Lab Results 09/29/22 09/29/22 09/29/22 Range/Units 14:46 14:46 14:46 WBC 7.7 (3.8-10.6) k/uL RBC 5.05 (4.30-5.90) m/uL Hgb 15.4 (13.0-17.5) gm/dL Hct 45.6 (39.0-53.0) % MCV 90.2 (80.0-100.0) fL MCH 30.5 (25.0-35.0) pg MCHC 33.8 (31.0-37.0) g/dL RDW 12.4 (11.5-15.5) % Plt Count 264 (150-450) k/uL MPV 6.6 Neutrophils % 64 % Lymphocytes % 30 % Monocytes % 4 % Eosinophils % 1 % Basophils % 1 % Neutrophils # 4.9 (1.3-7.7) k/uL Lymphocytes # 2.3 (1.0-4.8) k/uL Monocytes # 0.3 (0-1.0) k/uL Eosinophils # 0.1 (0-0.7) k/uL Basophils # 0.0 (0-0.2) k/uL PT (9.0-12.0) sec INR (<1.2) APTT (22.0-30.0) sec Sodium 140 (137-145) mmol/L Potassium 4.0 (3.5-5.1) mmol/L Chloride 102 (98-107) mmol/L Carbon Dioxide 33 H (22-30) mmol/L Anion Gap 5 mmol/L BUN 14 (9-20) mg/dL Creatinine 0.96 (0.66-1.25) mg/dL Est GFR (CKD-EPI)AfAm >90 (>60 ml/min/1.73 sqM) Est GFR (CKD-EPI)NonAf 89 (>60 ml/min/1.73 sqM) Glucose 103 H (74-99) mg/dL Calcium 9.0 (8.4-10.2) mg/dL Magnesium 1.7 (1.6-2.3) mg/dL Total Bilirubin 0.8 (0.2-1.3) mg/dL AST 34 (17-59) U/L ALT 31 (4-49) U/L Alkaline Phosphatase 53 (38-126) U/L Troponin I <0.012 (0.000-0.034) ng/mL Total Protein 6.9 (6.3-8.2) g/dL Albumin 4.3 (3.5-5.0) g/dL 09/29/22 Range/Units 15:35 WBC (3.8-10.6) k/uL RBC (4.30-5.90) m/uL Hgb (13.0-17.5) gm/dL Hct (39.0-53.0) % MCV (80.0-100.0) fL MCH (25.0-35.0) pg MCHC (31.0-37.0) g/dL RDW (11.5-15.5) % Plt Count (150-450) k/uL MPV Neutrophils % % Lymphocytes % % Monocytes % % Eosinophils % % Basophils % % Neutrophils # (1.3-7.7) k/uL Lymphocytes # (1.0-4.8) k/uL Monocytes # (0-1.0) k/uL Eosinophils # (0-0.7) k/uL Basophils # (0-0.2) k/uL PT 12.9 H (9.0-12.0) sec INR 1.3 H (<1.2) APTT 35.7 H (22.0-30.0) sec Sodium (137-145) mmol/L Potassium (3.5-5.1) mmol/L Chloride (98-107) mmol/L Carbon Dioxide (22-30) mmol/L Anion Gap mmol/L BUN (9-20) mg/dL Creatinine (0.66-1.25) mg/dL Est GFR (CKD-EPI)AfAm (>60 ml/min/1.73 sqM) Est GFR (CKD-EPI)NonAf (>60 ml/min/1.73 sqM) Glucose (74-99) mg/dL Calcium (8.4-10.2) mg/dL Magnesium (1.6-2.3) mg/dL Total Bilirubin (0.2-1.3) mg/dL AST (17-59) U/L ALT (4-49) U/L Alkaline Phosphatase (38-126) U/L Troponin I (0.000-0.034) ng/mL Total Protein (6.3-8.2) g/dL Albumin (3.5-5.0) g/dL Disposition Clinical Impression: Palpitations Disposition: ADMITTED IP TO THIS [facility] Condition: Fair Referrals: Leonardo Thapa DO [Primary Care Provider] - 1-2 days Decision Time: 16:18
[2022-09-29] MEDS ORDERED: NALOXONE 0.4 MG/ML 1 ML VIAL IV PRN (16:12)
[2022-09-29] MEDS ORDERED: SODIUM CHLORIDE 0.9% 1,000 ML IV SCH (16:15)
[2022-09-29 20:14] VITALS: RESP 16
[2022-09-30] MEDS: FLECAINIDE 50 MG TAB PO SCH ×2 (00:16→12:06)
[2022-09-30] MEDS: lisinopriL 10 MG TAB PO SCH ×2 (00:16→12:07)
--- NOTE | 2022-09-30 12:20 | P.CRDCN ---
History of Present Illness Consult date: 09/30/22 Reason for Consult (text): Palpitations History of present illness: HISTORY OF PRESENT ILLNESS: This is a 56-year-old male with a past medical history significant for hypertension, hyperlipidemia, and occasional marijuana use. Patient follows with Dr. Briceño. We have been asked to see the patient due to palpitations. Patient has been seen in the office by Dr. Story and is scheduled for atrial fibrillation ablation on 10/11. Patient is complaining of palpitations. He had an episode on Monday the last 48 hours and he also had episode yesterday. He has had chest pain to the left lower lateral chest wall. Patient also experiences some lightheadedness with the episodes. Patient states he has been taking his medications as directed which includes flecainide. EKG reveals junctional/sinus rhythm Chest xray negative for acute process CBC unremarkable. Potassium 4.0, BUN 14 and creatinine 0.96. Troponin negative 1. Liver function tests normal. INR 1.3 Treadmill exercise stress test on 09/27/2021 was normal Current home cardiac medications include Zetia 10 mg daily, flecainide 50 mg twice daily, lisinopril 10 mg twice a day, metoprolol succinate 25 mg daily, niacin 500 mg daily, Xarelto 20 mg daily, Zocor 5 mg daily REVIEW OF SYSTEMS: At the time of my exam: CONSTITUTIONAL: Denies fever or chills. HEENT: Denies blurred vision, vision changes, or eye pain. Denies hemoptysis CARDIOVASCULAR: Denies chest pain. Denies orthopnea. Denies PND. Denies palpitations RESPIRATORY: Denies shortness of breath. GASTROINTESTINAL: Denies abdominal pain. Denies nausea or vomiting. HEMATOLOGIC: Denies bleeding disorders. GENITOURINARY: Denies any blood in urine. SKIN: Denies pruitis. Denies rash. PHYSICAL EXAM: VITAL SIGNS: Reviewed. GENERAL: Well-developed in no acute distress. HEENT: Head is normocephalic. Pupils are equal, round. Sclerae anicteric. Mucous membranes of the mouth are moist. Neck supple. No JVD or thyromegaly LUNGS: Respirations even and unlabored. Lungs essentially clear to auscultation bilaterally. HEART: Regular rate and rhythm. S1 and S2 heard. ABDOMEN: Soft. Nondistended. Nontender. EXTREMITIES: Normal range of motion. No clubbing or cyanosis. Peripheral pulses intact. No lower extremity edema NEUROLOGIC: Awake and alert. Oriented x 3. ASSESSMENT: Recurrent paroxysmal atrial fibrillation with episodes of RVR History of syncope due to atrial fibrillation in the past Hypertension Hyperlipidemia Occasional marijuana use Family history of coronary artery disease PLAN: Resume home cardiac medications Decrease Toprol-XL to 12.5 mg daily The patient has ambulated in the hallway without further symptoms nor atrial fibrillation. He is cleared for discharge home today and plan to follow-up as scheduled for atrial fibrillation ablation. Nurse practitioner note has been reviewed by physician. Signing provider agrees with the documented findings, assessment, and plan of care. Past Medical History Past Medical History: Atrial Fibrillation, Hyperlipidemia, Hypertension History of Any Multi-Drug Resistant Organisms: None Reported Past Surgical History: Appendectomy Past Anesthesia/Blood Transfusion Reactions: No Reported Reaction Past Psychological History: No Psychological Hx Reported Smoking Status: Never smoker Past Alcohol Use History: Occasional Past Drug Use History: Marijuana Medications and Allergies Home Medications Medication Instructions Recorded Confirmed Type Niacin 500 mg PO DAILY@122904/08/21 09/29/22 History Omeprazole 20 mg PO DAILY@122904/08/21 09/29/22 History Tamsulosin HCl [Flomax] 0.4 mg PO DAILY@122904/08/21 09/29/22 History Zinc 50 mg PO DAILY@122904/08/21 09/29/22 History lisinopriL [Prinivil] 10 mg PO BID@1229,2904/08/21 09/29/22 History Ascorbic Acid [Vitamin C] 1,000 mg PO DAILY@122909/29/22 09/29/22 History Cholecalciferol [Vitamin D3 (125 125 mcg PO DAILY@122909/29/22 09/29/22 History Mcg = 5000 Iu)] Ezetimibe [Zetia] 10 mg PO DAILY@122909/29/22 09/29/22 History Flecainide [Tambocor] 50 mg PO BID@1229,2909/29/22 09/29/22 History Levocetirizine Dihydrochloride 5 mg PO DAILY@122909/29/22 09/29/22 History [Xyzal] Metoprolol Succinate [Metoprolol 25 mg PO DAILY@122909/29/2223 History Succinate ER] Multivit-Min/Folic/Vit K/Lycop 1 tab PO DAILY@1230 09/29/22 09/29/22 History [Men's Multivitamin Tablet] Rivaroxaban [Xarelto] 20 mg PO DAILY@1230 09/29/22 09/29/22 History Simvastatin [Zocor] 5 mg PO DAILY@1230 09/29/22 09/29/22 History Allergies Allergy/AdvReac Type Severity Reaction Status Date / Time cephalexin [From Keflex] AdvReac Nausea & Verified 09/29/22 16:43 Vomiting & Diarrhea codeine AdvReac Nausea & Verified 09/29/22 16:43 Vomiting [id number]-[id number]-TsV Reductase AdvReac Unknown Verified 09/30/22 12:10 Inhibitor Physical Exam Vitals: Vital Signs Temp Pulse Pulse Resp BP BP Pulse Ox 09/30/22 04:11 98.4 F 61 16 135/65 98 09/30/22 00:14 98.2 F 58 L 16 143/75 98 09/29/22 20:12 98.4 F 56 L 16 126/76 98 09/29/22 19:35 97.8 F 58 L 15 136/70 99 09/29/22 19:34 97.8 F 56 L 15 136/70 97 09/29/22 18:48 97.6 F 62 18 126/83 98 09/29/22 14:31 98 F 67 20 136/72 98 Intake and Output 09/29/22 09/30/22 09/30/22 22:59 06:59 14:59 Intake Total 540 Balance 540 Intake: Oral 540 Other: Voiding Method Toilet Toilet # Voids 2 Weight 81.647 kg Results 09/29/22 14:46 09/29/22 14:46 Cardiac Enzymes 09/29/22 09/29/22 Range/Units 14:46 14:46 AST 34 (17-59) U/L Troponin I <0.012 (0.000-0.034) ng/mL Coagulation 09/29/22 Range/Units 15:35 PT 12.9 H (9.0-12.0) sec APTT 35.7 H (22.0-30.0) sec CBC 09/29/22 Range/Units 14:46 WBC 7.7 (3.8-10.6) k/uL RBC 5.05 (4.30-5.90) m/uL Hgb 15.4 (13.0-17.5) gm/dL Hct 45.6 (39.0-53.0) % Plt Count 264 (150-450) k/uL Comprehensive Metabolic Panel 09/29/22 Range/Units 14:46 Sodium 140 (137-145) mmol/L Potassium 4.0 (3.5-5.1) mmol/L Chloride 102 (98-107) mmol/L Carbon Dioxide 33 H (22-30) mmol/L BUN 14 (9-20) mg/dL Creatinine 0.96 (0.66-1.25) mg/dL Glucose 103 H (74-99) mg/dL Calcium 9.0 (8.4-10.2) mg/dL AST 34 (17-59) U/L ALT 31 (4-49) U/L Alkaline Phosphatase 53 (38-126) U/L Total Protein 6.9 (6.3-8.2) g/dL Albumin 4.3 (3.5-5.0) g/dL Current Medications Generic Name Dose Route Start Last Admin Trade Name Freq PRN Reason Stop Dose Admin Flecainide Acetate 50 mg 09/30/22 00:00 09/30/22 00:16 Flecainide 50 Mg Tab PO 50 mg BID@0000,1200 DANA Administration Sodium Chloride 1,000 mls @ 20 mls/hr 09/29/22 16:15 09/29/22 16:37 Saline 0.9% IV Not Given .Q24H DANA Lisinopril 10 mg 09/30/22 00:00 09/30/22 00:16 Lisinopril 10 Mg Tab PO 10 mg BID@0000,1200 DANA Administration Naloxone HCl 0.2 mg 09/29/22 16:12 Naloxone 0.4 Mg/Ml 1 Ml Vial IV Q2M PRN Opioid Reversal Intake and Output 09/29/22 09/30/22 09/30/22 22:59 06:59 14:59 Intake Total 540 Balance 540 Intake: Oral 540 Other: Voiding Method Toilet Toilet # Voids 2 Weight 81.647 kg 09/29/22 14:46 09/29/22 14:46
[2022-09-30 12:25] VITALS: BP 112/76; PULSE 62; TEMP 98.4
[2022-09-30] MEDS ORDERED: MULTIVITAMINS, THERA 1 EACH TAB PO SCH (12:30)
[2022-09-30] MEDS ORDERED: METOPROLOL SUCCINATE (ER) 25 MG TAB.ER.24H PO SCH (12:30)
[2022-09-30] MEDS ORDERED: ZINC SULFATE 220 MG CAP PO SCH (12:30)
[2022-09-30] MEDS ORDERED: ATORVASTATIN 10 MG TAB PO SCH (12:30)
[2022-09-30] MEDS ORDERED: TAMSULOSIN 0.4 MG CAP.ER.24H PO SCH (12:30)
[2022-09-30] MEDS ORDERED: RIVAROXABAN 20 MG TAB PO SCH (12:30)
[2022-09-30] MEDS ORDERED: NIACIN TR 500 MG CAPLET PO SCH (12:30)
[2022-09-30] MEDS ORDERED: EZETIMIBE 10 MG TAB PO SCH (12:30)
[2022-09-30] MEDS ORDERED: LORATADINE 10 MG TAB PO SCH (12:30)
[2022-09-30] MEDS ORDERED: ASCORBIC ACID 500 MG TAB PO SCH (12:30)
[2022-09-30] MEDS ORDERED: PANTOPRAZOLE 40 MG TABLET PO SCH (12:30)
[2022-09-30] MEDS ORDERED: CHOLECALCIFEROL 125 MCG (5000 IU) TABLET PO SCH (12:30)
--- NOTE | 2022-09-30 17:54 | P.HPIM ---
History of Present Illness H&P Date: 09/30/22 Chief Complaint: Palpitations 56-year-old male he has past medical history paroxysmal A. fib. Patient has history of bouts of palpitations. States that he is prescribed flecainide to take when necessary palpitations. 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 Patient feels like his symptoms are getting worse prompting him to come to the emergency department. Significant other was present at the bedside in ED who stated that she has witnessed these episodes and that patient is very symptomatic causing him to be very lightheaded and borderline syncopal. Patient is asymptomatic currently. States that he does have associated chest pain. States it's a pressure-like sensation its worsening palpations. Review of Systems REVIEW OF SYSTEMS: CONSTITUTIONAL: No fever, no malaise, no fatigue. HEENT: No recent visual problems or hearing problems. Denied any sore throat. CARDIOVASCULAR: No chest pain, orthopnea, PND, no palpitations, no syncope. PULMONARY: No shortness of breath, no cough, no hemoptysis. GASTROINTESTINAL: No diarrhea, no nausea, no vomiting, no abdominal pain. NEUROLOGICAL: No headaches, no weakness, no numbness. HEMATOLOGICAL: Denies any bleeding or petechiae. GENITOURINARY: Denies any burning micturition, frequency, or urgency. MUSCULOSKELETAL/RHEUMATOLOGICAL: Denies any joint pain, swelling, or any muscle pain. ENDOCRINE: Denies any polyuria or polydipsia. The rest of the 14-point review of systems is negative. Past Medical History Past Medical History: Atrial Fibrillation, Hyperlipidemia, Hypertension History of Any Multi-Drug Resistant Organisms: None Reported Past Surgical History: Appendectomy Past Anesthesia/Blood Transfusion Reactions: No Reported Reaction Past Psychological History: No Psychological Hx Reported Smoking Status: Never smoker Past Alcohol Use History: Occasional Past Drug Use History: Marijuana Medications and Allergies Home Medications Medication Instructions Recorded Confirmed Type Niacin 500 mg PO DAILY@122904/08/21 09/29/22 History Omeprazole 20 mg PO DAILY@122904/08/21 09/29/22 History Tamsulosin HCl [Flomax] 0.4 mg PO DAILY@122904/08/21 09/29/22 History Zinc 50 mg PO DAILY@122904/08/21 09/29/22 History lisinopriL [Prinivil] 10 mg PO BID@1229,0030 04/08/21 09/29/22 History Ascorbic Acid [Vitamin C] 1,000 mg PO DAILY@1230 09/29/22 09/29/22 History Cholecalciferol [Vitamin D3 (125 125 mcg PO DAILY@1230 09/29/22 09/29/22 History Mcg = 5000 Iu)] Ezetimibe [Zetia] 10 mg PO DAILY@1230 09/29/22 09/29/22 History Flecainide [Tambocor] 50 mg PO BID@1230,0030 09/29/22 09/29/22 History Levocetirizine Dihydrochloride 5 mg PO DAILY@1230 09/29/22 09/29/22 History [Xyzal] Multivit-Min/Folic/Vit K/Lycop 1 tab PO DAILY@1230 09/29/22 09/29/22 History [Men's Multivitamin Tablet] Rivaroxaban [Xarelto] 20 mg PO DAILY@1230 09/29/22 09/29/22 History Simvastatin [Zocor] 5 mg PO DAILY@1230 09/29/22 09/29/22 History Metoprolol Succinate (ER) [Toprol 12.5 mg PO DAILY@1230 30 Days #30 09/30/22 Rx XL] tab Allergies Allergy/AdvReac Type Severity Reaction Status Date / Time cephalexin [From Keflex] AdvReac Nausea & Verified 09/29/22 16:43 Vomiting & Diarrhea codeine AdvReac Nausea & Verified 09/29/22 16:43 Vomiting Zltsazi-[id number]-FxL Reductase AdvReac Unknown Verified 09/30/22 12:10 Inhibitor Physical Exam Vitals: Vital Signs Temp Pulse Pulse Resp BP BP Pulse Ox 09/30/22 08:05 98.3 F 55 L 16 121/65 96 09/30/22 04:11 98.4 F 61 16 135/65 98 09/30/22 00:14 98.2 F 58 L 16 143/75 98 09/29/22 20:12 98.4 F 56 L 16 126/76 98 09/29/22 19:35 97.8 F 58 L 15 136/70 99 09/29/22 19:34 97.8 F 56 L 15 136/70 97 09/29/22 18:48 97.6 F 62 18 126/83 98 09/29/22 14:31 98 F 67 20 136/72 98 Intake and Output 09/29/22 09/30/22 09/30/22 22:59 06:59 14:59 Intake Total 540 Balance 540 Intake: Oral 540 Other: Voiding Method Toilet Toilet # Voids 2 # Bowel Movements 0 Weight 81.647 kg General Impression: Alert and oriented x3, not in acute distress HEENT: Normocephalic atraumatic, extra-ocular movements intact, pupils equal and reactive to light bilaterally, mucous membranes moist. Cardiovascular: Heart regular rate and rhythm Chest: Able to complete full sentences, no retractions, no tachypnea Abdomen: abdomen soft, non-tender, non-distended, no organomegaly Musculoskeletal: Pulses present and equal in all extremities, no peripheral edema Motor: no focal deficits noted Neurological: CN II-XII grossly intact, no focal motor or sensory deficits noted Skin: Intact with no visualized rashes Psych: Normal affect and mood Results CBC & Chem 7: 09/29/22 14:46 09/29/22 14:46 Labs: Abnormal Lab Results - Last 24 Hours (Table) 09/29/22 09/29/22 Range/Units 14:46 15:35 PT 12.9 H (9.0-12.0) sec INR 1.3 H (<1.2) APTT 35.7 H (22.0-30.0) sec Carbon Dioxide 33 H (22-30) mmol/L Glucose 103 H (74-99) mg/dL Thrombosis Risk Factor Assmnt - Choose All That Apply Any of the Below Risk Factors Present?: Yes Each Factor Represents 1 point: Age 41-60 years Other Risk Factors: No Thrombosis Risk Factor Assessment Total Risk Factor Score: 1 Thrombosis Risk Factor Assessment Level: Low Risk Assessment and Plan Assessment: 1. Recurrent paroxysmal atrial fibrillation with episodes of RVR - Patient is back in normal sinus rhythm - Has been evaluated by cardiology recommended to decrease Toprol-XL down to 12.5 mg daily with plans to continue rest of current cardiac medications - Continue with home dose of flecainide 50 mg twice a day - Continue with Xarelto 20 mg daily -- The patient has ambulated in the hallway without further symptoms nor atrial fibrillation. He is cleared for discharge home today and plan to follow-up as scheduled for atrial fibrillation ablation. 2. History of syncope due to atrial fibrillation in the past; patient is scheduled for ablation as outpatient 3. Hypertension; patient is currently on lisinopril 10 mg twice a day, metoprolol succinate 25 mg daily; metoprolol has been reduced to 12.5 mg daily 4. Hyperlipidemia; Zocor 5 mg daily with Zetia 10 mg daily DVT prophylaxis; SCDs/Xarelto CODE STATUS; full code
--- NOTE | 2022-09-30 17:55 | P.DS ---
Providers Date of admission: 09/29/22 16:12 Expected date of discharge: 09/30/22 Attending physician: Jhonny Huynh Consults: 09/29/22 16:12 Consult Physician Routine Consulting Provider: Dell Story Consult Reason/Comments: palpitations Do you want consulting provider notified?: Yes Primary care physician: Leonardo [facility] Course: 56-year-old male he has past medical history paroxysmal A. fib. Patient has history of bouts of palpitations. States that he is prescribed flecainide to take when necessary palpitations. 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 Patient feels like his symptoms are getting worse prompting him to come to the emergency department. Significant other was present at the bedside in ED who stated that she has witnessed these episodes and that patient is very symptomatic causing him to be very lightheaded and borderline syncopal. Patient is asymptomatic currently. States that he does have associated chest pain. States it's a pressure-like sensation its worsening palpations. 1. Recurrent paroxysmal atrial fibrillation with episodes of RVR - Patient is back in normal sinus rhythm - Has been evaluated by cardiology recommended to decrease Toprol-XL down to 12.5 mg daily with plans to continue rest of current cardiac medications - Continue with home dose of flecainide 50 mg twice a day - Continue with Xarelto 20 mg daily -- The patient has ambulated in the hallway without further symptoms nor atrial fibrillation. He is cleared for discharge home today and plan to follow-up as s cheduled for atrial fibrillation ablation. 2. History of syncope due to atrial fibrillation in the past; patient is scheduled for ablation as outpatient 3. Hypertension; patient is currently on lisinopril 10 mg twice a day, metoprolol succinate 25 mg daily; metoprolol has been reduced to 12.5 mg daily 4. Hyperlipidemia; Zocor 5 mg daily with Zetia 10 mg daily ----- The patient has ambulated in the hallway without further symptoms nor atrial fibrillation. He is cleared for discharge home today and plan to follow- up as scheduled for atrial fibrillation ablation. Patient Condition at Discharge: Fair Plan - Discharge Summary New Discharge Prescriptions: New Metoprolol Succinate (ER) [Toprol XL] 12.5 mg PO DAILY@1230 30 Days #30 tab Continue Zinc 50 mg PO DAILY@1230 Niacin 500 mg PO DAILY@1230 lisinopriL [Prinivil] 10 mg PO BID@123,003 Tamsulosin HCl [Flomax] 0.4 mg PO DAILY@123 Omeprazole 20 mg PO DAILY@123 Multivit-Min/Folic/Vit K/Lycop [Men's Multivitamin Tablet] 1 tab PO DAILY@123 Levocetirizine Dihydrochloride [Xyzal] 5 mg PO DAILY@1230 Cholecalciferol [Vitamin D3 (125 Mcg = 5000 Iu)] 125 mcg PO DAILY@1230 Simvastatin [Zocor] 5 mg PO DAILY@123 Rivaroxaban [Xarelto] 20 mg PO DAILY@123 Flecainide [Tambocor] 50 mg PO BID@1229,29 Ezetimibe [Zetia] 10 mg PO DAILY@1229 Ascorbic Acid [Vitamin C] 1,000 mg PO DAILY@123 Discontinued Metoprolol Succinate [Metoprolol Succinate ER] 25 mg PO DAILY@123 Discharge Medication List Niacin 500 mg PO DAILY@122904/08/21 [History] Omeprazole 20 mg PO DAILY@122904/08/21 [History] Tamsulosin HCl [Flomax] 0.4 mg PO DAILY@122904/08/21 [History] Zinc 50 mg PO DAILY@122904/08/21 [History] lisinopriL [Prinivil] 10 mg PO BID@1229,2904/08/21 [History] Ascorbic Acid [Vitamin C] 1,000 mg PO DAILY@122909/29/22 [History] Cholecalciferol [Vitamin D3 (125 Mcg = 5000 Iu)] 125 mcg PO DAILY@122909/29/22 [History] Ezetimibe [Zetia] 10 mg PO DAILY@122909/29/22 [History] Flecainide [Tambocor] 50 mg PO BID@1229,2909/29/22 [History] Levocetirizine Dihydrochloride [Xyzal] 5 mg PO DAILY@122909/29/22 [History] Multivit-Min/Folic/Vit K/Lycop [Men's Multivitamin Tablet] 1 tab PO DAILY@122909/29/22 [History] Rivaroxaban [Xarelto] 20 mg PO DAILY@122909/29/22 [History] Simvastatin [Zocor] 5 mg PO DAILY@1230 09/29/22 [History] Metoprolol Succinate (ER) [Toprol XL] 12.5 mg PO DAILY@1230 30 Days #30 tab 09/30/22 [Rx] Follow up Appointment(s)/Referral(s): Leonardo Thapa DO [Primary Care Provider] - 1-2 days (Marilyn will call with an appointment.) Patient Instructions/Handouts: Near Syncope (DC) Discharge Disposition: HOME SELF-CARE Care Plan Goals (MU): Keep appointment for ablation
== END 2022-09-30 14:10 | disposition home or self-care (01) ==
LOC: EC 14:21 → 3SCARD 16:12
PROVIDERS: ADMIT Hospitalist; ATTEND Hospitalist
DX: I48.20 Chronic atrial fibrillation, unspecified (principal); I48.0 Paroxysmal atrial fibrillation; I10 Essential (primary) hypertension; E78.5 Hyperlipidemia, unspecified; R55 Syncope and collapse; Z82.49 Family history of ischemic heart disease and other diseases of the circulatory system; Z90.49 Acquired absence of other specified parts of digestive tract; Z79.01 Long term (current) use of anticoagulants; Z79.899 Other long term (current) drug therapy; Z88.1 Allergy status to other antibiotic agents; Z88.5 Allergy status to narcotic agent; Z88.8 Allergy status to other drugs, medicaments and biological substances
CPT/HCPCS: 99285; 36415; 93005; 80053; 83735; 84484; 85025; 85610; 85730; 71046; G0378 ×2

== ENCOUNTER → 2023-06-28 | Outpatient (CLI) | payer BC ==
--- NOTE | 2023-06-28 14:53 | XR ---
EXAMINATION TYPE: XR toes LT DATE OF EXAM: 06/28/2023 COMPARISON: NONE HISTORY: LEFT TOE PAIN PER PATIENT. TECHNIQUE: 3 views of the left great toe are submitted. FINDINGS: There is no evidence for fracture or dislocation. Soft tissues are radiographically intact. Joint spaces are well preserved. IMPRESSION: As above
== END | disposition home or self-care (01) ==
LOC: RADXRMAIN 13:55
PROVIDERS: ATTEND Family Medicine
DX: M79.675 Pain in left toe(s) (principal); M10.9 Gout, unspecified

== ENCOUNTER → 2024-08-12 | Outpatient (CLI) | payer BC ==
--- NOTE | 2024-08-12 16:55 | XR ---
EXAMINATION TYPE: XR chest 2V DATE OF EXAM: 08/12/2024 4:04 PM COMPARISON: Chest radiographs from 09/29/2022 CLINICAL INDICATION: Male, 58 years old with history of R05.9; TECHNIQUE: XR chest 2V Frontal and lateral views of the chest. FINDINGS: Lungs/Pleura: There is no evidence of pleural effusion, focal consolidation, or pneumothorax. Pulmonary vascularity: Unremarkable. Heart/mediastinum: Cardiomediastinal silhouette is unremarkable. Musculoskeletal: No acute osseous pathology. IMPRESSION: No acute cardiopulmonary disease/process. [facility], , 08/12/2024 4:53 PM
== END | disposition home or self-care (01) ==
LOC: RADXRMAIN 15:41
PROVIDERS: ATTEND Family Medicine
DX: R05.9 Cough, unspecified (principal)
CPT/HCPCS: 71046